=== PATIENT | male | born 1960 | race Caucasian/White ===

== ENCOUNTER 2022-09-12 07:49 | Emergency (ER) | payer OTHER ==
[2022-09-12] MEDS ORDERED: EPINEPHRINE ABBOJECT 1 MG/10 ML IV ONE (07:50)
[2022-09-12 08:19] VITALS: PULSE 0
--- NOTE | 2022-09-12 08:39 | ERPHSYRPT ---
- History of Present Illness Time Seen by Provider: 09/12/22 08:24 Source: patient, family, EMS Exam Limitations: clinical condition Physician History: pt is a 61 year old male who suffered a sudden cardiac arrest while out on a boat this am with his brother who knows CPR and began CPR immediately. Paramedics arrived and took over resuscitation efforts including Epi CPR and I Gel resp support with possibly a few seconds return of rosc but not sustained and no effective perfusion or oxygenation noted ( pt reported to remain blue). There is a Hx of several stents for CAD and Hx CHF as well as COPD and Diabetes. The pt arrived in ER after 30 minutes of arrest and efforts continued with brief V fib , which changed to asystole /agonal prior to shock, and PEA but without any pulse. The tube was replaced and there was evidence for aspiration which clogged the ET tube and end tidal tube which had to be replaced again and were confirmed by good chest rise and bilateral breath sounds. End tidal CO2 and O2 sat remained undetectable although good wave forms for compressions were seen from the Aj device. The Hx from the family includes recent syncopal episodes the past week or so and visits for this with his Doctors recently. A sudden cardiac event such as KS is suspected complicated by his COPD . After discussion with family of the events and lack of current response to efforts, they requested that efforts be suspended and this occurred at 0804. The family was consoled and the events and my understanding of the pathophysiology was discussed with opportunity for questions. Law enforcement was present and they called the parts counterperson for the c ertification. Additional Hx was collaborated by girl friend and relatives during and after the resuscitation efforts. Timing/Duration: today Severity: severe Modifying Factors: Improves With: nothing Associated Symptoms: syncope, other (aspiration noted during resp suctioning of ET tube.) Allergies/Adverse Reactions: UNOBTAINABLE Allergy (Unverified 09/12/22 08:16) Home Medications: Unobtainable 09/12/22 [History] - Review of Systems Constitutional: No Fever, No Chills Eyes: No Symptoms Ears, Nose, & Throat: No Symptoms Respiratory: Dyspnea, Dyspnea on Exertion (LAUREANO), No Cough Cardiac: Syncope, Other (sudden cardiac arrest), No Chest Pain, No Edema Abdominal/Gastrointestinal: No Abdominal Pain, No Nausea, No Vomiting, No Diarrhea Genitourinary Symptoms: No Dysuria Musculoskeletal: Joint Pain (Hx), No Back Pain, No Neck Pain Skin: No Symptoms, No Rash Neurological: Dizziness, No Focal Weakness, No Sensory Changes Psychological: No Symptoms Endocrine: No Symptoms Hematologic/Lymphatic: No Symptoms Immunological/Allergic: No Symptoms All Other Systems: Reviewed and Negative - Past Medical History Pertinent Past Medical History: Yes Neurological History: Peripheral Neuropathy ENT History: No Pertinent History Cardiac History: Congestive Heart Failure, Coronary Artery Disease, Myocardial Infarction ([place]) Respiratory History: CHF, COPD Endocrine Medical History: Diabetes Type II Musculoskeletal History: Arthritis GI Medical History: No Pertinent History History: No Pertinent History Psycho-Social History: No Pertinent History - Past Surgical History Past Surgical History: No (unsure) Neuro Surgical History: No Pertinent History Cardiac: Cardiac Stent Gastrointestinal: No Pertinent History Genitourinary: No Pertinent History Male Surgical History: No Pertinent History - Social History Smoking Status: Smoker, status unknown Exposure to second hand smoke: No Alcohol Use: unknown Drug Use: none Significant Family History: no pertinent family hx - Nursing Vital Signs Nursing Vital Signs: Initial Vital Signs Pulse Rate 0 L 09/12/22 08:00 Pain Scale Pain Intensity 0 - Physical Exam General Appearance: other (Cardiac arrest) Eye Exam: other (pupils dilated and unresponsible) Ears, Nose, Throat Exam: normal ENT inspection, TMs normal, pharynx normal, moist mucous membranes Neck Exam: normal inspection, non-tender, supple, full range of motion Respiratory Exam: rhonchi, other (aspirate in lungs), No respiratory distress Cardiovascular Exam: other (cardiac arrest ) Gastrointestinal/Abdomen Exam: No tenderness, No mass Rectal Exam: deferred Back Exam: normal inspection, normal range of motion, No CVA tenderness, No vertebral tenderness Extremity Exam: normal inspection, normal range of motion, pelvis stable Neurologic Exam: other (cardiac arrest and unconscious) Skin Exam: warm, dry, cyanosis, No rash Lymphatic Exam: No adenopathy SpO2 Interpretation: hypoxic, ABG ordered (not collected due to termination of code), airway management int. O2 Delivery: Ambu-Bag - Course Nursing assessment & vital signs reviewed: Yes Ordered Tests: Active Orders 24 hr Category Date Time Status POCT GLUCOSE Stat Lab 09/12/22 07:53 Received POCT GLUCOSE Stat Lab 09/12/22 07:54 Received POCT GLUCOSE Stat Lab 09/12/22 07:55 Completed Lab/Rad Data: Laboratory Results 09/12/22 Range/Units 07:55 POC Glucometer 317 H (74 to 106) mg/dL - Progress Progress: unchanged Progress Note: 09/12/22 08:51 The parts counterperson was consulted came to ER and also discussed findings with the family, took additional Hx for the certification process, and discussed their wishes for disposition of the patients remains. Counseled pt/family regarding: diagnosis Medical Desision Making - Independent Historian Additional History obtained from: Child, Family, Relative/friend - Diagnostic Testing Diagnostic test were ordered, analyzed, and reviewed by me: No - Risk of complications The pt has a high risk of morbidity or mortality based on: Decision not to resucitate (decision to cease further attempts at resuscitation discussed and approved by family.) - Departure Departure Disposition: Clinical Impression: Cardiac arrest with KS compl by COPD, Aspiration into respiratory tract Condition: Critical Care Time: Yes Critical Care Time(excluding separately billable procedures): Critical 30-74 mins (resuscitation efforts and discussions with family of events and decision to terminate efforts) Referrals: GONZALEZ SHAFFER [Primary Care Provider] - Follow up/PCP as directed
== END 2022-09-12 11:53 | disposition expired ==
LOC: ED 07:49
DX: I21.9 Acute myocardial infarction, unspecified (principal); I46.2 Cardiac arrest due to underlying cardiac condition; J44.9 Chronic obstructive pulmonary disease, unspecified; T17.918A Gastric contents in respiratory tract, part unspecified causing other injury, initial encounter
CPT/HCPCS: 31500; 82947; 92950; 96374; 96376; 99282; 99291; J0171